=== PATIENT | female | born 1975 | race Caucasian/White ===

== ENCOUNTER 2017-05-29 08:46 | Outpatient (CLI) | payer OTHER ==
[~2017-05-29] VITALS: Ht 160 cm; Wt 56.7 kg
[~2017-05-29 08:46] MED LIST: AMOX1TAB12 PO; FLONASE16 GM NS
== END 2017-05-29 09:00 | disposition home or self-care (01) ==
LOC: OFIC 805 08:46
DX: J02.8 Acute pharyngitis due to other specified organisms (principal)

== ENCOUNTER 2018-01-23 08:53 | Outpatient (CLI) | payer OTHER ==
[~2018-01-23] VITALS: Ht 152.4 cm; Wt 59.0 kg
== END 2018-01-23 17:00 | disposition home or self-care (01) ==
LOC: OFIC 805 08:53
DX: J31.2 Chronic pharyngitis (principal); B08.5 Enteroviral vesicular pharyngitis

== ENCOUNTER 2018-08-06 12:10 | Outpatient (CLI) | payer OTHER | END 2018-08-06 12:25 | disposition home or self-care (01) | LOC: OFIC 805 12:10 | DX: R22.1 Localized swelling, mass and lump, neck (principal); J02.9 Acute pharyngitis, unspecified; R53.83 Other fatigue ==